=== PATIENT | female | born 1990 | race Caucasian/White ===

== ENCOUNTER 2022-02-16 11:09 | Outpatient (CLI) | payer BC ==
[2022-02-16 12:19] LABS: BASOPHILS % (AUTO) 0.1 % (0-1); EOSINOPHILS % (AUTO) 0.2 % (0-6); HEMATOCRIT 36.3 % (35.0-45.0); HEMOGLOBIN 12.3 g/dl (12.0-16.0); LYMPHOCYTES # (AUTO) 1.5 X10'3 (1.1-4.8); LYMPHOCYTES % (AUTO) 13.3 % (21-51); MEAN CORPUSCULAR HGB CONC 33.8 g/dL (33.0-36.5); MEAN CORPUSCULAR VOLUME 85.8 FL (78-98); MEAN PLATELET VOLUME 7.7 FL (7.4-10.4); MONOCYTES # (AUTO) 0.5 X10'3 (0-0.9); MONOCYTES % (AUTO) 4.3 % (2-12); NEUTROPHILS % (AUTO) 82.1 % (42-75); PLATELET COUNT 319 X10'3 (140-440); RED BLOOD COUNT 4.23 X10'6 (4.20-5.60); RED CELL DISTRIBUTION WIDTH 13.4 % (11.5-14.5)
[2022-02-16 12:24] LABS: CLARITY,URINE SLIGHTLY CLOUDY (Clear); COLOR,URINE YELLOW (Yellow); GLUCOSE, URINE NEGATIVE (Neg); KETONES,URINE NEGATIVE (Neg); LEUKOCYTE ESTERASE ,URINE NEGATIVE (Neg); NITRITES, URINE NEGATIVE (Neg); OCCULT BLOOD,URINE NEGATIVE (Neg); PROTEIN,URINE NEGATIVE (Neg); UROBILINOGEN,URINE 0.2 E.U/dL (0.2-1.0)
[2022-02-16 12:29] LABS: UA COLLECTION TYPE CLN CATCH MIDSTREAM; URINE AMPHETAMINE SCREEN NEGATIVE (Neg); URINE BARBITUATE SCREEN NEGATIVE (Neg); URINE BENZODIAZEPINES SCREEN NEGATIVE (Neg); URINE CANNABINOID SCREEN NEGATIVE (Neg); URINE COCAINE SCREEN NEGATIVE (Neg); URINE METHADONE SCREEN NEGATIVE (Neg); URINE OPIATE SCREEN NEGATIVE (Neg); URINE PHENCYCLIDINE SCREEN NEGATIVE (Neg)
[2022-02-16 12:30] LABS: SQUAMOUS EPITHELIAL CELL,UR MANY /LPF (FEW)
[2022-02-16 12:31] LABS: BACTERIA,URINE FEW /HPF (Neg); RBC,URINE 0-2 /HPF (0-2); WBC,URINE 0-4 /HPF (0-4)
[2022-02-16 13:03] LABS: HIV ANTIBODY 1&2 RAPID NON-REACTIVE (Neg)
[2022-02-17 12:24] LABS: HBSAG SCREEN Negative (Negative); RUBELLA ANTIBODIES, IGG 2.12 index (Immune >0.99); VARICELLA-ZOSTER VIRUS AB, IGG 1054 index (Immune >165)
== END 2022-02-16 23:59 | disposition home or self-care (01) ==
LOC: LAB 11:09
PROVIDERS: ATTEND Obstetrics & Gynecology Obstetrics
DX: Z13.79 Encounter for other screening for genetic and chromosomal anomalies (principal); Z13.228 Encounter for screening for other metabolic disorders
CPT/HCPCS: 36415; 80185; 80305; 81001; 84439; 84443; 85025; 86592; 86703; 86762; 86885; 86900; 86901; 87340; 87491

== ENCOUNTER 2022-05-18 11:00 | Outpatient (CLI) | payer BC ==
[2022-05-18 12:41] LABS: BASOPHILS % (AUTO) 0.1 % (0-1); EOSINOPHILS % (AUTO) 0.6 % (0-6); HEMATOCRIT 29.1 % (35.0-45.0); HEMOGLOBIN 10.1 g/dl (12.0-16.0); LYMPHOCYTES # (AUTO) 1.3 X10'3 (1.1-4.8); LYMPHOCYTES % (AUTO) 16.6 % (21-51); MEAN CORPUSCULAR HEMOGLOBIN 28.6 PG (27.0-31.0); MEAN CORPUSCULAR HGB CONC 34.6 g/dL (33.0-36.5); MEAN CORPUSCULAR VOLUME 82.7 FL (78-98); MEAN PLATELET VOLUME 7.5 FL (7.4-10.4); MONOCYTES # (AUTO) 0.5 X10'3 (0-0.9); MONOCYTES % (AUTO) 5.9 % (2-12); NEUTROPHILS % (AUTO) 76.8 % (42-75); PLATELET COUNT 316 X10'3 (140-440); RED BLOOD COUNT 3.52 X10'6 (4.20-5.60); RED CELL DISTRIBUTION WIDTH 13.2 % (11.5-14.5); WHITE BLOOD COUNT 7.8 X10'3 (4.5-11.0)
== END 2022-05-18 23:59 | disposition home or self-care (01) ==
LOC: LAB 11:00
PROVIDERS: ATTEND Obstetrics & Gynecology Obstetrics
DX: Z34.92 Encounter for supervision of normal pregnancy, unspecified, second trimester (principal)
CPT/HCPCS: 36415; 82950; 85025; 86592

== ENCOUNTER 2023-08-31 11:00 | Emergency (ER) | payer BC ==
[~2023-08-31] VITALS: Ht 162.6 cm; Wt 71.5 kg
[2023-08-31 11:45] LABS: STREP A SCREEN POSITIVE (Neg)
[2023-08-31] MEDS ORDERED: AMOX-101 PO (11:58)
[2023-08-31] MEDS ORDERED: amoxicillin 250mg capsule PO ONE (12:00)
[2023-08-31 12:15] VITALS: BP 122/60; PULSE 99; TEMP 98; O2SAT 100
[2023-08-31 12:21] VITALS: RESP 16
--- NOTE | 2023-08-31 13:53 | NUR ---
AGREE WITH LVNS ASSESSMENT, REVIEWED.
== END 2023-08-31 12:26 | disposition home or self-care (01) ==
LOC: ER 11:00
DX: J02.9 Acute pharyngitis, unspecified (principal); Z79.899 Other long term (current) drug therapy
CPT/HCPCS: 87880; 99283